=== PATIENT | female | born 1950 | race African-American/Black ===

== ENCOUNTER 2022-11-25 05:05 | Inpatient (IN) | payer MEDICARE, OTHER ==
[2022-11-25] VITALS (11 sets, daily range): BP systolic 1–140; BP diastolic 60–78; TEMP 97.4–98.2; O2SAT 97–100
[~2022-11-25] VITALS: Ht 157.5 cm; Wt 70.0 kg
[2022-11-25] MEDS ORDERED: BUPIVACAINE 0.5 % PF 150 MG/30 ML VIAL ONE (05:36)
[2022-11-25] MEDS ORDERED: POLYMYXIN B SULFATE 500,000 UNITS ONE (05:36)
[2022-11-25] MEDS ORDERED: ANESTHESIA TRAY IN PYXIS 1 EA TRAY MC ONE (05:36)
[2022-11-25] MEDS ORDERED: diphenhydrAMINE HCL 25 MG CAPSULE PO PRN (06:00)
[2022-11-25] MEDS ORDERED: ALBUTEROL FS 2.5 MG/0.5 ML VIAL.NEB NEB PRN (06:00)
[2022-11-25] MEDS ORDERED: CLONIDINE HCL 0.1 MG TABLET PO PRN (06:00)
[2022-11-25] MEDS ORDERED: ONDANSETRON HCL/PF 4 MG/2 ML VIAL IV PRN (06:00)
[2022-11-25] MEDS ORDERED: MENTHOL/CETYLPYRD (CEPACOL) 1 LOZ LOZENGE PO PRN (06:00)
[2022-11-25] MEDS ORDERED: HYDROMORPHONE 1 MG/1 ML DISP.SYRIN IM/IV/SC PRN (06:00)
[2022-11-25] MEDS ORDERED: MAG HYDROX/AL HYDROX/SIMETH 30 ML UDC PO PRN (06:00)
[2022-11-25] MEDS ORDERED: ROPIVACAINE HCL 0.5% 5 MG/ML 30ML VIAL ONE (06:27)
[2022-11-25] MEDS ORDERED: CLINDAMYCIN IV RTU IN D5W 50 ML ONE (06:27)
[2022-11-25] MEDS ORDERED: Magnesium 1 GM/2 ML VIAL ONE (06:28)
[2022-11-25] MEDS ORDERED: ROCURONIUM BROMIDE 50 MG/5 ML ONE (06:28)
[2022-11-25] MEDS ORDERED: TRANEXAMIC ACID 1,000 MG/10 ML VIAL ONE (06:28)
[2022-11-25] MEDS ORDERED: FAMOTIDINE/PF INJ 20 MG/2 ML VIAL IV ONE (06:28)
[2022-11-25] MEDS ORDERED: FENTANYL PF 100MCG/2ML AMPUL ONE ×2 (06:28→08:51)
[2022-11-25] MEDS ORDERED: TRANEXAMIC ACID 3,000 MG in SODIUM CHLORIDE IRRIG SOLUTION 70 ML IR ONE (06:30)
[2022-11-25] MEDS ORDERED: LABETALOL HCL IV 100MG VIAL ONE (07:11)
[2022-11-25] MEDS ORDERED: HYDROMORPHONE INJ 2 MG/ML DISP.SYRIN ONE (08:09)
[2022-11-25] MEDS: DOCUSATE SODIUM 100 MG CAPSULE PO SCH ×2 (09:40→17:04)
[2022-11-25] MEDS: FAMOTIDINE (20 MG) 20 MG TABLET PO SCH ×2 (09:40→21:00)
[2022-11-25] MEDS: IV D5/0.45 NACL 1,000 ML IV PRN (10:21)
[2022-11-25] MEDS ORDERED: BISACODYL SUPP (10 MG) 10 MG/SUPP.RECT SUPP.RECT RC PRN (10:30)
[2022-11-25] MEDS ORDERED: ONDANSETRON HCL/PF 4 MG/2 ML VIAL IVP PRN (10:30)
[2022-11-25] MEDS ORDERED: SENNOSIDES 8.6 MG TABLET PO PRN (10:30)
[2022-11-25] MEDS ORDERED: ACETAMINOPHEN 325 MG TABLET PO PRN (10:30)
[2022-11-25] MEDS ORDERED: DOCUSATE SODIUM 250 MG CAPSULE PO PRN (10:30)
[2022-11-25] MEDS ORDERED: ZOLPIDEM TARTRATE 5 MG TABLET PO PRN (10:30)
[2022-11-25] MEDS ORDERED: TRIA1TAB3 PO (11:50)
[2022-11-25] MEDS ORDERED: OXYC-133 PO (11:50)
[2022-11-25] MEDS ORDERED: LISI10TA29 PO (11:50)
[2022-11-25] MEDS ORDERED: KETO15CR2 TP (11:50)
[2022-11-25] MEDS ORDERED: MONT10TA22 PO (11:50)
[2022-11-25] MEDS ORDERED: IBUP-1953 PO (11:50)
[2022-11-25] MEDS ORDERED: TRIA80CR12 TP (11:50)
[2022-11-25] MEDS ORDERED: RIVA10TA PO (11:50)
[2022-11-25] MEDS ORDERED: EPIN0.3A4 IM (11:50)
[2022-11-25] MEDS ORDERED: DICL100G26 TP (11:50)
[2022-11-25] MEDS ORDERED: LORA10TA68 PO (11:50)
[2022-11-25] MEDS ORDERED: DIPH25TA22 PO (11:50)
[2022-11-25] MEDS ORDERED: CHOL100045 PO (11:51)
[2022-11-25] MEDS: CLINDAMYCIN 600 MG in IV D5W 50 ML IV SCH ×2 (12:21→18:03)
[2022-11-25] MEDS: oxyCODONE IR immediate release 5 MG PO PRN ×2 (15:32→18:55)
[2022-11-26] MEDS: IV D5/0.45 NACL 1,000 ML IV PRN (00:15)
[2022-11-26] MEDS: CLINDAMYCIN 600 MG in IV D5W 50 ML IV SCH (00:17)
[2022-11-26 08:00] VITALS: BP 126/60; TEMP 98.6; O2SAT 100
[2022-11-26] MEDS: FAMOTIDINE (20 MG) 20 MG TABLET PO SCH ×2 (08:03→21:08)
[2022-11-26] MEDS: DOCUSATE SODIUM 100 MG CAPSULE PO SCH ×2 (08:03→16:29)
[2022-11-26] MEDS: oxyCODONE IR immediate release 5 MG PO PRN (08:04)
[2022-11-26] MEDS ORDERED: ASPIRIN 325 MG TABLET PO SCH (09:00)
[2022-11-26] MEDS ORDERED: APIXABAN 5 MG TABLET PO SCH (09:00)
[2022-11-26] MEDS: HYDROCODONE/APAP 5/325MG TABLET PO PRN ×2 (09:47→15:29)
[2022-11-26] MEDS: LISINOPRIL (10MG) 10 MG TABLET PO SCH (12:00)
[2022-11-26] MEDS ORDERED: KETOCONAZOLE 2% CREAM 15 GM TUBE TP PRN (12:00)
[2022-11-26] MEDS ORDERED: diphenhydrAMINE HCL 50 MG CAPSULE PO PRN (12:00)
[2022-11-26] MEDS: LORATADINE 10 MG TABLET PO SCH (12:23)
[2022-11-26] MEDS: MONTELUKAST SODIUM (10MG) 10 MG TABLET PO SCH (12:23)
[2022-11-26] MEDS: CHOLECALCIFEROL (VITAMIN D 3) 400 UNIT TABLET PO SCH (12:23)
[2022-11-26 12:26] LABS: BASOPHILS % (AUTO) 0.1 % (0.0-2.0); EOSINOPHILS # (AUTO) 0.1 K/uL (0.0-0.7); HEMATOCRIT 30 % (33-45); HEMOGLOBIN 9.8 g/dL (11.5-14.8); LYMPHOCYTES # (AUTO) 1.1 K/uL (0.8-4.8); MEAN CORPUSCULAR HEMOGLOBIN 26 PG (26.0-33.0); MEAN CORPUSCULAR HGB CONC 33 g/dl (31.0-36.0); MEAN CORPUSCULAR VOLUME 80 fL (82-100); MONOCYTES # (AUTO) 0.9 K/uL (0.1-1.30); MONOCYTES % (AUTO) 8.8 % (2.0-12.0); NEUTROPHILS # (AUTO) 8.2 K/uL (1.8-8.9); NEUTROPHILS % (AUTO) 79.1 % (43.0-81.0); PLATELET COUNT (AUTO) 225 K/uL (150-450); RED BLOOD CELL COUNT(AUTO) 3.72 MIL/uL (4.0-5.2); RED CELL DISTRIBUTION WIDTH 15.2 % (11.5-15.0); WHITE BLOOD COUNT (AUTO) 10.4 K/uL (4.3-11.0)
[2022-11-26 12:38] LABS: CALCIUM, SERUM 8.8 mg/dL (8.5-10.1); CREATININE 1.1 mg/dL (0.6-1.3); POTASSIUM 3.5 mmol/L (3.5-5.1)
[2022-11-26 16:00] VITALS: BP 131/58; TEMP 98.8; O2SAT 97
[2022-11-26] MEDS: RIVAROXABAN 10 MG TABLET PO SCH (17:27)
[2022-11-26 20:00] VITALS: BP_SYST 128; BP_SYST 138; BP_DIAS 66; TEMP 98.8; O2SAT 95
[2022-11-26] MEDS: IBUPROFEN 400 MG TABLET PO SCH (21:08)
[2022-11-27] MEDS: IV D5/0.45 NACL 1,000 ML IV PRN (01:53)
[2022-11-27 06:22] LABS: CALCIUM, SERUM 8.9 mg/dL (8.5-10.1); CARBON DIOXIDE 27 mmol/L (21-32); CHLORIDE 104 mmol/L (98-107); CREATININE 0.8 mg/dL (0.6-1.3); GLUCOSE 111 mg/dL (74-106); MAGNESIUM 2.4 mg/dL (1.8-2.4); PHOSPHORUS 2.9 mg/dL (2.5-4.9); POTASSIUM 3.3 mmol/L (3.5-5.1); SODIUM SERUM 138 mmol/L (136-145); UREA NITROGEN, BLOOD 6 mg/dL (7-18)
[2022-11-27 08:00] VITALS: BP 131/73; TEMP 97.9; O2SAT 97
[2022-11-27] MEDS: LORATADINE 10 MG TABLET PO SCH (08:33)
[2022-11-27] MEDS: DOCUSATE SODIUM 100 MG CAPSULE PO SCH ×2 (08:33→16:02)
[2022-11-27] MEDS: LISINOPRIL (10MG) 10 MG TABLET PO SCH (08:33)
[2022-11-27] MEDS: CHOLECALCIFEROL (VITAMIN D 3) 400 UNIT TABLET PO SCH (08:33)
[2022-11-27] MEDS: MONTELUKAST SODIUM (10MG) 10 MG TABLET PO SCH (08:33)
[2022-11-27] MEDS: FAMOTIDINE (20 MG) 20 MG TABLET PO SCH ×2 (08:33→21:25)
[2022-11-27] MEDS ORDERED: POTASSIUM CHLORIDE 20 MEQ TAB.PRT.SR PO SCH (09:00)
[2022-11-27 09:28] LABS: BASOPHILS # (AUTO) 0.1 K/uL (0.0-0.2); BASOPHILS % (AUTO) 0.5 % (0.0-2.0); EOSINOPHILS # (AUTO) 0.5 K/uL (0.0-0.7); EOSINOPHILS % (AUTO) 4.2 % (0.0-6.0); HEMATOCRIT 31 % (33-45); HEMOGLOBIN 9.8 g/dL (11.5-14.8); LYMPHOCYTES # (AUTO) 1.5 K/uL (0.8-4.8); LYMPHOCYTES % (AUTO) 13.7 % (20.0-44.0); MEAN CORPUSCULAR HEMOGLOBIN 26 PG (26.0-33.0); MEAN CORPUSCULAR HGB CONC 32 g/dl (31.0-36.0); MEAN CORPUSCULAR VOLUME 81 fL (82-100); MONOCYTES # (AUTO) 1.1 K/uL (0.1-1.30); MONOCYTES % (AUTO) 10.3 % (2.0-12.0); NEUTROPHILS # (AUTO) 7.9 K/uL (1.8-8.9); NEUTROPHILS % (AUTO) 71.3 % (43.0-81.0); PLATELET COUNT (AUTO) 228 K/uL (150-450); RED BLOOD CELL COUNT(AUTO) 3.79 MIL/uL (4.0-5.2); RED CELL DISTRIBUTION WIDTH 15.5 % (11.5-15.0)
[2022-11-27] MEDS: HYDROCODONE/APAP 5/325MG TABLET PO PRN ×2 (09:30→16:15)
[2022-11-27 16:00] VITALS: BP 118/61; TEMP 99.1; O2SAT 94
[2022-11-27] MEDS: RIVAROXABAN 10 MG TABLET PO SCH (16:04)
[2022-11-27 20:00] VITALS: BP 121/50; TEMP 99; O2SAT 95
[2022-11-27] MEDS: IBUPROFEN 400 MG TABLET PO SCH (21:25)
[2022-11-28] MEDS: HYDROCODONE/APAP 5/325MG TABLET PO PRN (06:33)
[2022-11-28 07:35] LABS: CALCIUM, SERUM 9.4 mg/dL (8.5-10.1); CARBON DIOXIDE 33 mmol/L (21-32); CHLORIDE 103 mmol/L (98-107); CREATININE 0.9 mg/dL (0.6-1.3); GLUCOSE 96 mg/dL (74-106); POTASSIUM 3.4 mmol/L (3.5-5.1); SODIUM SERUM 141 mmol/L (136-145); UREA NITROGEN, BLOOD 6 mg/dL (7-18)
[2022-11-28 08:00] VITALS: BP 143/68; TEMP 98.1; O2SAT 97
[2022-11-28] MEDS: MONTELUKAST SODIUM (10MG) 10 MG TABLET PO SCH (09:11)
[2022-11-28] MEDS: FAMOTIDINE (20 MG) 20 MG TABLET PO SCH (09:11)
[2022-11-28] MEDS: LORATADINE 10 MG TABLET PO SCH (09:11)
[2022-11-28] MEDS: CHOLECALCIFEROL (VITAMIN D 3) 400 UNIT TABLET PO SCH (09:11)
[2022-11-28 09:12] VITALS: BP 143/62
[2022-11-28] MEDS: DOCUSATE SODIUM 100 MG CAPSULE PO SCH (09:12)
[2022-11-28] MEDS: LISINOPRIL (10MG) 10 MG TABLET PO SCH (09:12)
[2022-11-28] MEDS ORDERED: POTASSIUM CHLORIDE 20 MEQ TAB.PRT.SR PO ONE (09:30)
== END 2022-11-28 10:45 | DRG 470 ==
LOC: DS 05:05 → MED 05:06
PROVIDERS: ADMIT Nurse Practitioner Acute Care; ATTEND Nurse Practitioner Acute Care
PROC: 0SRC0J9 Replacement of Right Knee Joint with Synthetic Substitute, Cemented, Open Approach (ICD-10-PCS; principal; 2022-11-25)
DX: M17.11 Unilateral primary osteoarthritis, right knee (principal); D68.69 Other thrombophilia; E66.01 Morbid (severe) obesity due to excess calories; I10 Essential (primary) hypertension; J45.909 Unspecified asthma, uncomplicated; R73.03 Prediabetes; Z74.09 Other reduced mobility; Z68.28 Body mass index [BMI] 28.0-28.9, adult; Z88.0 Allergy status to penicillin; Z20.822 Contact with and (suspected) exposure to COVID-19; Z87.891 Personal history of nicotine dependence; Z82.3 Family history of stroke
CPT/HCPCS: 36415; 80048-TC; 83735-TC; 84100-TC; 85025-TC; 86850-TC; 87081-TC; 88305-TC; 88311-TC; 97112-TC; 97116-TC; 97530-TC; 97760-TC; A4217; A4223; C1713; C1776; G0378; J1100; J1170; J2405; J2704; J2795; J3010; J3475; J3490; J7030; J7040; J7060; L1830